=== PATIENT | female | born 2000 | race Caucasian/White ===

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

== ENCOUNTER → 2018-09-04 | Outpatient (CLI) | payer BC ==
--- NOTE | 2018-09-04 14:51 | ECHOF ---
Referral Reason:R60.9 edema R53.83 fatigue MEASUREMENTS -------- HEIGHT: 162.6 cm WEIGHT: 70.3 kg BP: IVSd: 0.9 cm (0.6 - 1.1) LVIDd: 3.0 cm (3.9 - 5.3) LVPWd: 0.9 cm (0.6 - 1.1) IVSs: 1.1 cm LVIDs: 2.3 cm LVPWs: 1.4 cm RVIDd: 2.1 cm (< 3.3) LAESV Index (A-L): 21.14 ml/m Ao Diam: 2.4 cm (2.0 - 3.7) LA Diam: 2.6 cm (2.7 - 3.8) AV Cusp: 2.0 cm (1.5 - 2.6) EPSS: 0.3 cm MV E Leonardo: 1.22 m/s MV DecT: 115 ms MV A Leonardo: 0.58 m/s MV E/A Ratio: 2.10 RAP: 5.00 mmHg RVSP: 12.98 mmHg MV EF SLOPE: 118.36 mm/s (70 - 150) MV EXCURSION: 1.26 cm (> 18.000) FINDINGS -------- Resting tachycardia (HR>100bpm). This was a technically good study. The left ventricular size is normal. Left ventricular wall thickness is normal. Overall left vent ricular systolic function is normal with, an EF between 60 - 65 %. The right ventricle is normal in size. The left atrial size is normal. The right atrial size is normal. Interatrial and interventricular septum intact. The aortic valve is trileaflet and appears structurally normal. The mitral valve is normal. There is trace mitral regurgitation. The tricuspid valve appears structurally normal. Trace tricuspid regurgitation present. The right ventricular systolic pressure, as measured by Doppler, is 12.98mmHg. There is no pulmonic regurgitation present. The aortic root size is normal. Normal inferior vena cava with normal inspiratory collapse consistent with estimated right atrial pre ssure of 5 mmHg. There is no pericardial effusion. CONCLUSIONS -------- 1. Resting tachycardia (HR>100bpm). 2. This was a technically good study. 3. The left ventricular size is normal. 4. Left ventricular wall thickness is normal. 5. Overall left ventricular systolic function is normal with, an EF between 60 - 65 %. 6. The right ventricle is normal in size. 7. The left atrial size is normal. 8. The right atrial size is normal. 9. Interatrial and interventricular septum intact. 10. The aortic valve is trileaflet and appears structurally normal. 11. The mitral valve is normal. 12. There is trace mitral regurgitation. 13. The tricuspid valve appears structurally normal. 14. Trace tricuspid regurgitation present. 15. The right ventricular systolic pressure, as measured by Doppler, is 12.98mmHg. 16. There is no pulmonic regurgitation present. 17. The aortic root size is normal. 18. Normal inferior vena cava with normal inspiratory collapse consistent with estimated right atrial pressure of 5 mmHg. 19. There is no pericardial effusion. SENIOR ARCHITECTURAL DESIGNER: Sravanthi Boateng RDCS
== END | disposition home or self-care (01) ==
LOC: RADECHMAIN 11:38
PROVIDERS: ATTEND Family Medicine
DX: R00.0 Tachycardia, unspecified (principal)
CPT/HCPCS: 93225; 93226; 93306

== ENCOUNTER 2018-09-10 11:03 | Emergency (ER) | payer BC ==
[2018-09-10] MEDS ORDERED: IBUPROFEN IV 600 MG in SODIUM CHLORIDE 0.9% 250 ML IV STA (11:23)
[2018-09-10] MEDS ORDERED: ONDANSETRON 4 MG/2 ML VIAL IVP STA (11:25)
[2018-09-10] MEDS ORDERED: MORPHINE SULFATE 2 MG/ML SYRINGE IVP ONE (11:25)
[2018-09-10] MEDS ORDERED: SODIUM CHLORIDE 0.9% 1,000 ML IV SCH (11:30)
--- NOTE | 2018-09-10 11:30 | ED ---
Abdominal Pain HPI - General Chief Complaint: Abdominal Pain Stated Complaint: abdominal pain Time Seen by Provider: 09/10/18 11:08 Source: family, RN notes reviewed, old records reviewed Mode of arrival: ambulatory Limitations: no limitations - History of Present Illness Initial Comments: 17-year-old female presents emergency department today for evaluation with complaints of 3 weeks of intermittent right lower quadrant pain. She reports she went to see her primary care doctor for physical. That time they were more concerned with patient's tachycardia, and she's had a complete workup including Holter monitoring recent echo. They don't have results of that yet. Patient's reports that over the past 48 hours she's had significant diarrhea multiple episodes of vomiting. Patient states that she has no upper respiratory symptoms or chest pain or shortness of breath. Patient states that she is currently on her menstrual cycle. - Related Data Home Medications Medication Instructions Recorded Confirmed Ibuprofen [Advil] 600 mg PO Q8HR PRN 09/10/18 09/10/18 Previous Rx's Medication Instructions Recorded Ondansetron Odt [Zofran Odt] 4 mg PO Q8HR PRN #20 tab 09/10/18 Allergies Allergy/AdvReac Type Severity Reaction Status Date / Time cephalexin [From Keflex] Allergy Rash/Hives Verified 09/10/18 11:08 Pertussis Vaccines Allergy Swelling Verified 09/10/18 11:08 Review of Systems ROS Statement: Those systems with pertinent positive or pertinent negative responses have been documented in the HPI. ROS Other: All systems not noted in ROS Statement are negative. Past Medical History Past Medical History: No Reported History History of Any Multi-Drug Resistant Organisms: None Reported Past Surgical History: Adenoidectomy, Tonsillectomy Past Psychological History: No Psychological Hx Reported Smoking Status: Never smoker Past Alcohol Use History: None Reported Past Drug Use History: None Reported General Exam - General Exam Comments Initial Comments: 17 year old female, mild discomfort, palor noted. Limitations: no limitations Head exam: Present: atraumatic, normocephalic, normal inspection Eye exam: Present: normal appearance, PERRL, EOMI. Absent: scleral icterus, conjunctival injection, periorbital swelling ENT exam: Present: normal exam Neck exam: Present: normal inspection. Absent: tenderness, meningismus, lymphadenopathy Respiratory exam: Present: normal lung sounds bilaterally. Absent: respiratory distress, wheezes, rales, rhonchi, stridor Cardiovascular Exam: Present: regular rate, normal rhythm, normal heart sounds. Absent: systolic murmur, diastolic murmur, rubs, gallop, clicks GI/Abdominal exam: Present: soft, tenderness (RLQ tendernessss. ), normal bowel sounds. Absent: distended, guarding, rebound, rigid Extremities exam: Present: normal inspection, full ROM, normal capillary refill. Absent: tenderness, pedal edema, joint swelling, calf tenderness Back exam: Present: normal inspection Neurological exam: Present: alert, oriented X3, CN II-XII intact Psychiatric exam: Present: normal affect, normal mood Skin exam: Present: warm, dry, intact, normal color. Absent: rash Course Vital Signs 09/10/18 09/10/18 09/10/18 11:04 11:25 13:47 Temperature 97.9 F 100.0 F H 98.2 F Pulse Rate 144 H 110 H Respiratory 18 16 Rate Blood Pressure 108/65 113/73 Blood Pressure [Right Arm Sitting] Blood Pressure [Right Arm Standing] Blood Pressure [Right Arm Supine] O2 Sat by Pulse 100 98 Oximetry 09/10/18 09/10/18 09/10/18 14:38 15:21 16:34 Temperature 97.6 F Pulse Rate 87 85 Respiratory 19 19 Rate Blood Pressure 107/60 110/70 Blood Pressure 108/65 [Right Arm Sitting] Blood Pressure 99/56 [Right Arm Standing] Blood Pressure 91/58 [Right Arm Supine] O2 Sat by Pulse 97 99 Oximetry - Reevaluation(s) Reevaluation #1: 09/10/18 12:14 Ambulating to the bathroom, Patient had a syncopal episode. Was lowered to the ground gently, no head injury. Stat EKG and Patient is placed on water systems engineer. Patient appeared diaphoretic and pale. Medical Decision Making - Medical Decision Making 17 year old female presents with 3 weeks intermittent RLQ pain, a few days of diarrhea and vomiting. She arrived tachycardic and febrile. Blood work obtained and normal. She works in medical field. Patient unable to have bM for cdiff sample. will take home. While in ED patient had syncopal episode likely from dehydration. Given 3L bolus. Patient vitals normalized. Patient CT abdomen is negative for appendicitis. Discussed patient to have prompt follow up with PCP and given note for work. Discussed liekly recent viral gastroenteritis. Patient family and patient agree to treatment plan. - Lab Data Result diagrams: 09/10/18 11:40 09/10/18 11:40 Lab Results 09/10/18 09/10/18 09/10/18 Range/Units 11:40 11:40 11:40 WBC 6.6 (4.0-11.0) k/uL RBC 5.19 (3.80-5.40) m/uL Hgb 15.0 (11.4-16.0) gm/dL Hct 46.4 H (34.0-46.0) % MCV 89.4 (80.0-100.0) fL MCH 28.9 (25.0-35.0) pg MCHC 32.3 (31.0-37.0) g/dL RDW 12.7 (11.5-15.5) % Plt Count 243 (150-450) k/uL Neutrophils % 84 % Lymphocytes % 11 % Monocytes % 4 % Eosinophils % 1 % Basophils % 0 % Neutrophils # 5.5 (1.3-7.7) k/uL Lymphocytes # 0.7 L (1.0-4.8) k/uL Monocytes # 0.3 (0-1.0) k/uL Eosinophils # 0.0 (0-0.7) k/uL Basophils # 0.0 (0-0.2) k/uL PT (9.0-12.0) sec INR (<1.2) APTT (22.0-30.0) sec Sodium 141 (137-145) mmol/L Potassium 3.7 (3.5-5.1) mmol/L Chloride 104 (98-107) mmol/L Carbon Dioxide 25 (22-30) mmol/L Anion Gap 12 mmol/L BUN 13 (7-17) mg/dL Creatinine 0.68 (0.52-1.04) mg/dL Est GFR (CKD-EPI)AfAm >90 (>60 ml/min/1.73 sqM) Est GFR (CKD-EPI)NonAf >90 (>60 ml/min/1.73 sqM) Glucose 98 (74-99) mg/dL Plasma Lactic Acid Rock 1.2 (0.7-2.0) mmol/L Calcium 9.7 (8.4-10.2) mg/dL Total Bilirubin 1.0 (0.2-1.3) mg/dL AST 23 (14-36) U/L ALT 25 (9-52) U/L Alkaline Phosphatase 53 (38-126) U/L Troponin I (0.000-0.034) ng/mL Total Protein 7.6 (6.3-8.2) g/dL Albumin 4.8 (3.5-5.0) g/dL TSH (0.465-4.680) mIU/L Urine Color Urine Appearance (Clear) Urine pH (5.0-8.0) Ur Specific Bartley (1.001-1.035) Urine Protein (Negative) Urine Glucose (UA) (Negative) Urine Ketones (Negative) Urine Blood (Negative) Urine Nitrite (Negative) Urine Bilirubin (Negative) Urine Urobilinogen (<2.0) mg/dL Ur Leukocyte Esterase (Negative) Urine RBC (0-5) /hpf Urine WBC (0-5) /hpf Ur Squamous Epith Cells (0-4) /hpf Urine Bacteria (None) /hpf Urine Mucus (None) /hpf Urine HCG, Qual (Not Detectd) 09/10/18 09/10/18 09/10/18 Range/Units 11:40 11:40 11:40 WBC (4.0-11.0) k/uL RBC (3.80-5.40) m/uL Hgb (11.4-16.0) gm/dL Hct (34.0-46.0) % MCV (80.0-100.0) fL MCH (25.0-35.0) pg MCHC (31.0-37.0) g/dL RDW (11.5-15.5) % Plt Count (150-450) k/uL Neutrophils % % Lymphocytes % % Monocytes % % Eosinophils % % Basophils % % Neutrophils # (1.3-7.7) k/uL Lymphocytes # (1.0-4.8) k/uL Monocytes # (0-1.0) k/uL Eosinophils # (0-0.7) k/uL Basophils # (0-0.2) k/uL PT 10.7 (9.0-12.0) sec INR 1.0 (<1.2) APTT 24.6 (22.0-30.0) sec Sodium (137-145) mmol/L Potassium (3.5-5.1) mmol/L Chloride (98-107) mmol/L Carbon Dioxide (22-30) mmol/L Anion Gap mmol/L BUN (7-17) mg/dL Creatinine (0.52-1.04) mg/dL Est GFR (CKD-EPI)AfAm (>60 ml/min/1.73 sqM) Est GFR (CKD-EPI)NonAf (>60 ml/min/1.73 sqM) Glucose (74-99) mg/dL Plasma Lactic Acid Rock (0.7-2.0) mmol/L Calcium (8.4-10.2) mg/dL Total Bilirubin (0.2-1.3) mg/dL AST (14-36) U/L ALT (9-52) U/L Alkaline Phosphatase (38-126) U/L Troponin I <0.012 (0.000-0.034) ng/mL Total Protein (6.3-8.2) g/dL Albumin (3.5-5.0) g/dL TSH 0.471 (0.465-4.680) mIU/L Urine Color Urine Appearance (Clear) Urine pH (5.0-8.0) Ur Specific Bartley (1.001-1.035) Urine Protein (Negative) Urine Glucose (UA) (Negative) Urine Ketones (Negative) Urine Blood (Negative) Urine Nitrite (Negative) Urine Bilirubin (Negative) Urine Urobilinogen (<2.0) mg/dL Ur Leukocyte Esterase (Negative) Urine RBC (0-5) /hpf Urine WBC (0-5) /hpf Ur Squamous Epith Cells (0-4) /hpf Urine Bacteria (None) /hpf Urine Mucus (None) /hpf Urine HCG, Qual (Not Detectd) 09/10/18 09/10/18 Range/Units 14:30 14:30 WBC (4.0-11.0) k/uL RBC (3.80-5.40) m/uL Hgb (11.4-16.0) gm/dL Hct (34.0-46.0) % MCV (80.0-100.0) fL MCH (25.0-35.0) pg MCHC (31.0-37.0) g/dL RDW (11.5-15.5) % Plt Count (150-450) k/uL Neutrophils % % Lymphocytes % % Monocytes % % Eosinophils % % Basophils % % Neutrophils # (1.3-7.7) k/uL Lymphocytes # (1.0-4.8) k/uL Monocytes # (0-1.0) k/uL Eosinophils # (0-0.7) k/uL Basophils # (0-0.2) k/uL PT (9.0-12.0) sec INR (<1.2) APTT (22.0-30.0) sec Sodium (137-145) mmol/L Potassium (3.5-5.1) mmol/L Chloride (98-107) mmol/L Carbon Dioxide (22-30) mmol/L Anion Gap mmol/L BUN (7-17) mg/dL Creatinine (0.52-1.04) mg/dL Est GFR (CKD-EPI)AfAm (>60 ml/min/1.73 sqM) Est GFR (CKD-EPI)NonAf (>60 ml/min/1.73 sqM) Glucose (74-99) mg/dL Plasma Lactic Acid Rock (0.7-2.0) mmol/L Calcium (8.4-10.2) mg/dL Total Bilirubin (0.2-1.3) mg/dL AST (14-36) U/L ALT (9-52) U/L Alkaline Phosphatase (38-126) U/L Troponin I (0.000-0.034) ng/mL Total Protein (6.3-8.2) g/dL Albumin (3.5-5.0) g/dL TSH (0.465-4.680) mIU/L Urine Color Yellow Urine Appearance Clear (Clear) Urine pH 7.0 (5.0-8.0) Ur Specific Bartley 1.050 H (1.001-1.035) Urine Protein Trace H (Negative) Urine Glucose (UA) Negative (Negative) Urine Ketones 1+ H (Negative) Urine Blood Large H (Negative) Urine Nitrite Negative (Negative) Urine Bilirubin Negative (Negative) Urine Urobilinogen <2.0 (<2.0) mg/dL Ur Leukocyte Esterase Negative (Negative) Urine RBC >182 H (0-5) /hpf Urine WBC 7 H (0-5) /hpf Ur Squamous Epith Cells 5 H (0-4) /hpf Urine Bacteria Rare H (None) /hpf Urine Mucus Rare H (None) /hpf Urine HCG, Qual Not Detected (Not Detectd) 09/10/18 12:29 EKGEKG shows normal sinus rhythm with normal EKG. Ventricular rate of 93 beats were minute period. It was 136 ms. QRS ration 76 most seconds. QT QTc is 342/425 ms. - Radiology Data Radiology results: report reviewed CT abdomen and pelvis is negative for acute process, no sign of appendiitis. Disposition Clinical Impression: Gastroenteritis, History of tachycardia Disposition: HOME SELF-CARE Condition: Good Instructions (If sedation given, give patient instructions): Gastroenteritis (ED), Lightheadedness (ED) Additional Instructions: Patient is to be off of work for the next week. Rest, remain hydrated alternate between water and Gatorade. He take nausea medicine as needed. Return the stool softener for further testing. Patient should follow-up with your primary care doctor and he can also follow up with cardiology. Prescriptions: Ondansetron Odt [Zofran Odt] 4 mg PO Q8HR PRN #20 tab PRN Reason: Nausea Is patient prescribed a controlled substance at d/c from ED?: No Referrals: Dipesh Urbano III, MD [Primary Care Provider] - 1-2 days Time of Disposition: 16:06
[2018-09-10] MEDS: SODIUM CHLORIDE 0.9% 500 ML 500 ML IV SCH ×2 (12:09→14:36)
[2018-09-10 12:12] LABS: Basophils % (A) 0 %; Eosinophils % (A) 1 %; HCT 46.4 % (34.0-46.0); Lymphocytes # (A) 0.7 k/uL (1.0-4.8); Lymphocytes % (A) 11 %; MCH 28.9 pg (25.0-35.0); MCHC 32.3 g/dL (31.0-37.0); MCV 89.4 fL (80.0-100.0); Mean Platelet Volume 7.8; Monocytes # (A) 0.3 k/uL (0-1.0); Monocytes % (A) 4 %; Neutrophils # (A) 5.5 k/uL (1.3-7.7); Neutrophils % (A) 84 %; Platelet Count 243 k/uL (150-450); RBC 5.19 m/uL (3.80-5.40); RDW 12.7 % (11.5-15.5); WBC 6.6 k/uL (4.0-11.0)
[2018-09-10 12:17] LABS: ALT 25 U/L (9-52); AST 23 U/L (14-36); Albumin 4.8 g/dL (3.5-5.0); Alkaline Phosphatase 53 U/L (38-126); Anion Gap 12 mmol/L; Blood Urea Nitrogen 13 mg/dL (7-17); Calcium 9.7 mg/dL (8.4-10.2); Carbon Dioxide 25 mmol/L (22-30); Chloride 104 mmol/L (98-107); Glucose 98 mg/dL (74-99); Potassium 3.7 mmol/L (3.5-5.1); Sodium 141 mmol/L (137-145); Total Protein 7.6 g/dL (6.3-8.2)
[2018-09-10 12:24] LABS: Partial Thromboplastin Time 24.6 sec (22.0-30.0); Prothrombin Time 10.7 sec (9.0-12.0)
--- NOTE | 2018-09-10 13:29 | CT ---
EXAMINATION TYPE: CT abdomen pelvis w con DATE OF EXAM: 09/10/2018 HISTORY: RLQ pain CT DLP: 659.4mGycm Automated Exposure Control for Dose Reduction was Utilized. CONTRAST: CT scan of the abdomen and pelvis is performed without oral but with IV Contrast, patient injected wi th 100 mL of Isovue 300. COMPARISON: None FINDINGS: LUNG BASES: No significant abnormality is appreciated. LIVER/GB: Mild central periportal edema is seen which is nonspecific finding. PANCREAS: No significant abnormality is seen. SPLEEN: There is 1.0 cm splenule anterior in splenic hilum axial image 9. ADRENALS: No significant abnormality is seen. KIDNEYS: No significant abnormality is seen. BOWEL: Evaluation bowel is suboptimal due to lack of enteric contrast and patient having little intra -abdominal fat. There is no suspicious small or large bowel dilatation. Appendix felt difficult to vi sualize with certainty. Normal-appearing appendix medially from the cecum is felt present axial image 33. No surrounding inflammatory change at base of cecum is identified. UTERUS/ADNEXA: Anteverted uterus is present. LYMPH NODES: No greater than 1cm abdominal or pelvic lymph nodes are appreciated. OSSEOUS STRUCTURES: No significant abnormality is seen. OTHER: No significant additional abnormality is seen. IMPRESSION: Suboptimal study without CT evidence for acute appendicitis. No significant acute finding is seen to account for patient's clinical symptoms.
[2018-09-10] MEDS ORDERED: SODIUM CHLORIDE 0.9% 2,000 ML IV ONE (14:10)
[2018-09-10 14:38] VITALS: RESP 19
[2018-09-10 14:55] LABS: Appearance,Urine Clear (Clear); Bacteria,Urine Rare /hpf; Bilirubin,Urine Negative (Negative); Blood,Urine Large (Negative); Color,Urine Yellow; Glucose,Urine (UA) Negative (Negative); Ketones,Urine 1+ (Negative); Leukocyte Esterase,Urine Negative (Negative); Mucus,Urine Rare /hpf; Nitrite,Urine Negative (Negative); Protein,Urine Trace (Negative); RBC,Urine >182 /hpf (0-5); Squamous Epithelial Cell,Urine 5 /hpf (0-4); Urobilinogen,Urine <2.0 mg/dL (<2.0); WBC,Urine 7 /hpf (0-5)
[2018-09-10 16:35] VITALS: BP 110/70; PULSE 85; TEMP 97.6
== END 2018-09-10 16:35 | disposition home or self-care (01) ==
LOC: EC 11:03
DX: K52.9 Noninfective gastroenteritis and colitis, unspecified (principal); Z88.1 Allergy status to other antibiotic agents; Z88.7 Allergy status to serum and vaccine
CPT/HCPCS: 99285; 96365; 96375 ×2; 96361 ×4; 36415; 93005; 80053; 84443; 83605; 84484; 85025; 85610; 85730; 81001; 81025; 87040; 87086; 87077; 87186; 74177; J2405; J2270; J1741; Q9967

== ENCOUNTER 2018-11-20 07:22 | Day surgery (SDC) | payer BC ==
[2018-11-16 12:56] VITALS: BMI 26.6
[~2018-11-20 07:22] MED LIST: SODIUM CHLORIDE 0.9% 1,000 ML IV SCH
[2018-11-20 08:09] VITALS: PULSE 103
[2018-11-20 10:33] VITALS: BP 127/70; RESP 18
--- NOTE | 2018-11-20 10:48 | P.PCN ---
Preoperative Diagnosis: Diagnosis recurrent syncope and presyncope Twelve-lead ECG shows sinus rhythm with early repolarization abnormality normal cardiac intervals, normal PA narrow QRS normal QT interval no delta waves no epsilon waves Tilt table test per protocol Baseline blood pressure 104/69 mmHg Baseline heart rate 82 beats a minute Patient was tilted upright at an angle of 70 per protocol After 20 minutes patient had sinus tachycardia 211 beats a minute following that there was a drop in her blood pressure, abrupt. She was symptomatic. She felt warm and very weak and looked pale and was near syncopal Symptoms were very similar to her clinical episodes When she was laid supine, heart rate and blood pressure normalized Lowest heart rate of 40 beats a minute Impression Normal twelve-lead ECG Vasovagal/neurocardiogenic response to upright tilting Increase fluid and salt intake Lower extremity muscle strengthening exercises Regular normal diet Discussed with patient's mother and the patient
== END 2018-11-20 10:30 | disposition home or self-care (01) ==
LOC: CATHEP 07:22
PROVIDERS: ATTEND Internal Medicine Clinical Cardiac Electrophysiology
DX: R55 Syncope and collapse (principal); I47.1 Supraventricular tachycardia; Z88.1 Allergy status to other antibiotic agents; Z86.19 Personal history of other infectious and parasitic diseases; Z82.49 Family history of ischemic heart disease and other diseases of the circulatory system
CPT/HCPCS: 81025; 93660

== ENCOUNTER → 2021-05-26 | Outpatient (CLI) | payer BC ==
[2021-05-26 10:52] LABS: Basophils # (A) 0.03 X 10*3/uL (0.00-0.10); Basophils % (A) 0.2 %; Eosinophils # (A) 0.02 X 10*3/uL (0.04-0.35); Eosinophils % (A) 0.2 %; HCT 39.8 % (37.2-46.3); HGB 12.5 g/dL (12.0-15.0); Lymphocytes # (A) 2.45 X 10*3/uL (0.90-5.00); Lymphocytes % (A) 19.1 %; MCH 28.4 pg (27.0-32.0); MCHC 31.4 g/dL (32.0-37.0); MCV 90.5 fL (80.0-97.0); Mean Platelet Volume 10.6 fL (9.5-12.2); Monocytes # (A) 1.08 X 10*3/uL (0.20-1.00); Monocytes % (A) 8.4 %; Neutrophils # (A) 9.17 X 10*3/uL (1.80-7.70); Neutrophils % (A) 71.7 %; Platelet Count 313 X 10*3/uL (140-440)
[2021-05-26 16:51] LABS: ALT 12 U/L (8-44); AST 20 U/L (13-35); African American GFR (CKD) 142.5 (60.0-200.0); Albumin 4.7 g/dL (3.8-4.9); Albumin/Globulin Ratio 1.62 (1.60-3.17); Alkaline Phosphatase 62 U/L (41-126); BUN/Creat Ratio 17.57 Ratio (12.00-20.00); Blood Urea Nitrogen 12.3 mg/dL (9.0-27.0); Calcium 9.5 mg/dL (8.7-10.3); Chloride 103 mmol/L (96-109); Ferritin 82.8 ng/mL (10.0-291.0); Globulin 2.9 g/dL (1.6-3.3); Glucose 74 mg/dL (70-110); Potassium 3.4 mmol/L (3.5-5.5); Sodium 141 mmol/L (135-145); Total Protein 7.6 g/dL (6.2-8.2)
[2021-05-27 05:30] LABS: % Iron Saturation 27.54 (12.00-45.00); Iron 101 ug/dL (50-170); Total Iron Binding Capacity 367 ug/dL (228-460)
== END | disposition home or self-care (01) ==
LOC: LABWHC1 07:24
PROVIDERS: ATTEND Physician Assistant Medical
DX: Z00.01 Encounter for general adult medical examination with abnormal findings (principal); I47.9 Paroxysmal tachycardia, unspecified; R53.83 Other fatigue; Z11.3 Encounter for screening for infections with a predominantly sexual mode of transmission
CPT/HCPCS: 36415; 80053; 82306; 82533; 82607; 82728; 83540; 83550; 84443; 85025

== ENCOUNTER 2023-04-07 20:10 | Emergency (ER) | payer BC ==
[2023-04-07 22:11] VITALS: BP 144/101; PULSE 120; RESP 18; TEMP 98.8
--- NOTE | 2023-04-07 22:58 | ED ---
Skin/Abscess/FB HPI - General Chief complaint: Skin/Abscess/Foreign Body Stated complaint: left foot swollen/pain Time Seen by Provider: 04/07/23 21:55 Source: patient Mode of arrival: ambulatory Limitations: no limitations - History of Present Illness Initial comments: This patient is 22-year-old woman who presents to have evaluation for which she suspects is infection of her foot. She indicates the interdigital area between first and second toes on the left foot. She states that it is becoming red. She has had a wart at that location going back some months and thinks that it has become infected. She is not having systemic symptoms. No fever or chills. No palpitations, chest pain, dyspnea or cough. MD complaint: discoloration -: days(s) Tetanus Up to Date: yes Location: L foot Severity: moderate Quality: burning Consistency: constant Improves with: none Worsens with: none Context: none Associated symptoms: denies other symptoms - Related Data Home Medications Medication Instructions Recorded Confirmed Ibuprofen [Advil] 600 mg PO Q8HR PRN 09/10/18 11/16/18 Acetaminophen Tab [Tylenol Tab] 650 mg PO Q6H PRN 11/16/18 11/16/18 Previous Rx's Medication Instructions Recorded Sulfamethox-Tmp 800-160Mg [Bactrim 1 each PO Q12HR #14 tab 04/07/23 Ds] Amoxicillin 875 mg PO Q12HR 5 Days #10 tablet 04/10/23 Doxycycline Hyclate 100 mg PO BID 5 Days #10 tab 04/10/23 Ibuprofen [Motrin] 800 mg PO Q8H PRN #30 tab 04/10/23 Allergies Allergy/AdvReac Type Severity Reaction Status Date / Time cephalexin [From Keflex] Allergy Rash/Hives Verified 04/10/23 18:21 Pertussis Vaccines Allergy Swelling Verified 04/10/23 18:21 Review of Systems ROS Statement: Those systems with pertinent positive or pertinent negative responses have been documented in the HPI. ROS Other: All systems not noted in ROS Statement are negative. Constitutional: Denies: fever, chills, weakness Respiratory: Denies: dyspnea Cardiovascular: Denies: chest pain, palpitations Gastrointestinal: Denies: vomiting Skin: Reports: as per HPI, change in color Neurological: Denies: weakness, numbness, paresthesias Past Medical History Past Medical History: No Reported History Additional Past Medical History / Comment(s): HIGH HR, 120'S TO 130'S, TOLD SINUS TACH IN PAST; PASSED OUT OCC WHEN ILL. History of Any Multi-Drug Resistant Organisms: None Reported Past Surgical History: Adenoidectomy, Tonsillectomy Past Anesthesia/Blood Transfusion Reactions: No Reported Reaction Past Psychological History: No Psychological Hx Reported Smoking Status: Never smoker Past Alcohol Use History: None Reported Past Drug Use History: None Reported - Past Family History Mother Family Medical History: Cancer Additional Family Medical History / Comment(s): COLON [place] General Exam Limitations: no limitations General appearance: alert, in no apparent distress Respiratory exam: Present: normal lung sounds bilaterally. Absent: respiratory distress, wheezes, rales, rhonchi, stridor Cardiovascular Exam: Present: regular rate, normal rhythm, normal heart sounds. Absent: systolic murmur, diastolic murmur, rubs, gallop Left Lower Leg exam: Present: normal inspection, full ROM. Absent: tenderness, swelling Ankle exam: Present: normal inspection, full ROM. Absent: tenderness, swelling Foot/Toe exam: Present: full ROM, swelling, erythema. Absent: tenderness, abrasion, laceration, ecchymosis, deformity, puncture wound Neurovascular tendon exam: Present: no vascular compromise. Absent: motor deficit, sensory deficit, tendon deficit Skin exam: Present: warm, dry, intact, erythema. Absent: rash Course Vital Signs 04/07/23 21:47 Temperature 98.8 F Pulse Rate 120 H Respiratory 18 Rate Blood Pressure 144/101 O2 Sat by Pulse 98 Oximetry Medical Decision Making - Medical Decision Making Patient is 22-year-old woman who presents with what appears to be developing foot infection. She is started on antibiotics here and will have close follow- up, either returning here if no improvement or worsening, or following with the orthopedics if there is not total resolution. Was pt. sent in by a medical professional or institution (, PA, RUFFLER, urgent care, hospital, or shelter...) When possible be specific @ -[No] Did you speak to anyone other than the patient for history (EMS, parent, family, police, friend...)? What history was obtained from this source @ -[Family did contribute history Did you review nursing and triage notes (agree or disagree)? Why? @ -[I reviewed and agree with nursing and triage notes] Were old charts reviewed (outside hosp., previous admission, EMS record, old EKG, old radiological studies, urgent care reports/EKG's, shelter records)? Report findings @ -[No old charts were reviewed] Differential Diagnosis (chest pain, altered mental status, abdominal pain women, abdominal pain men, vaginal bleeding, weakness, fever, dyspnea, syncope, headache, dizziness, GI bleed, back pain, seizure, CVA, palpatations, mental health, musculoskeletal)? @ -[not applicable] EKG interpreted by me (3pts min.). @ -[ X-rays interpreted by me (1pt min.). @ -[None done] CT interpreted by me (1pt min.). @ -[None done] U/S interpreted by me (1pt. min.). @ -[None done] What testing was considered but not performed or refused? (CT, X-rays, U/S, labs)? Why? @ -[None] What meds were considered but not given or refused? Why? @ -[None] Did you discuss the management of the patient with other professionals (professionals i.e. , PA, RUFFLER, lab, RT, psych nurse, social worker aide, drum straightener, teacher, youth officer, disability case manager)? Give summary @ -[No] Was smoking cessation discussed for >3mins.? @ -[No] Was critical care preformed (if so, how long)? @ -[No] Were there social determinants of health that impacted care today? How? (Homelessness, low income, unemployed, alcoholism, drug addiction, transportation, low edu. Level, literacy, decrease access to med. care, long-term, rehab)? @ -[No] Was there de-escalation of care discussed even if they declined (Discuss DNR or withdrawal of care, Hospice)? DNR status @ -[No] What co-morbidities impacted this encounter? (DM, HTN, Smoking, COPD, CAD, Cancer, CVA, ARF, Chemo, Hep., AIDS, mental health diagnosis, sleep apnea, morbid obesity)? @ -[None] Was patient admitted / discharged? Hospital course, mention meds given and route, prescriptions, significant lab abnormalities, going to OR and other pertinent info. @ -[See above Undiagnosed new problem with uncertain prognosis? @ -[No] Drug Therapy requiring intensive monitoring for toxicity (Heparin, Nitro, Insulin, Cardizem)? @ -[No] Were any procedures done? @ -[No] Diagnosis/symptom? @ -Acute cellulitis left foot Acute, or Chronic, or Acute on Chronic? @ -[Acute Uncomplicated (without systemic symptoms) or Complicated (systemic symptoms)? @ -[Uncomplicated Side effects of treatment? @ -[No] Exacerbation, Progression, or Severe Exacerbation? @ -[No] Poses a threat to life or bodily function? How? (Chest pain, [place], [place], pneumonia, PE, COPD, DKA, ARF, appy, cholecystitis, CVA, Diverticulitis, Homicidal, Suicidal, threat to staff... and all critical care pts) @ -[No] Disposition Clinical Impression: Cellulitis Disposition: HOME SELF-CARE Condition: Good Instructions (If sedation given, give patient instructions): Cellulitis (ED) Prescriptions: Sulfamethox-Tmp 800-160Mg [Bactrim Ds] 1 each PO Q12HR #14 tab Is patient prescribed a controlled substance at d/c from ED?: No Referrals: None,Stated [Primary Care Provider] - 1-2 days
[2023-04-07] MEDS ORDERED: traMADol 50 MG STARTER PACK 3 TAB BTL PO STA (22:59)
[2023-04-07] MEDS ORDERED: SULFAMETH-TMP DS STARTER PACK 2 TAB BTL PO STA (22:59)
== END 2023-04-07 23:19 | disposition home or self-care (01) ==
LOC: EC 20:10
DX: L03.116 Cellulitis of left lower limb (principal); Z88.0 Allergy status to penicillin; Z88.2 Allergy status to sulfonamides; Z88.8 Allergy status to other drugs, medicaments and biological substances; Z88.7 Allergy status to serum and vaccine
CPT/HCPCS: 99283

== ENCOUNTER 2023-04-10 18:15 | Emergency (ER) | payer BC ==
--- NOTE | 2023-04-10 18:50 | ED ---
Extremity Problem HPI - General Source: patient, RN notes reviewed Mode of arrival: ambulatory Limitations: no limitations <Emily West - Last Filed: 04/10/23 18:49> - General Source: patient, RN notes reviewed Mode of arrival: ambulatory Limitations: no limitations - History of Present Illness MD Complaint: extremity pain, extremity swelling <Argenis Galicia - Last Filed: 04/11/23 01:35> - General Chief complaint: Extremity Problem,Nontraumatic Stated complaint: LEFT FOOT INFECTION Time Seen by Provider: 04/10/23 18:49 - History of Present Illness Initial comments: Patient is a [age]-year-old female presented ER chief complaint of a left foot infection patient is currently on Bactrim. Patient states her symptoms are getting worse. Patient denies any fevers or chills. (Emily West) This is a 22-year-old female who presents to the emergency department for concerns of a left foot infection. States that she has a wart between her first and second toe on the left foot. She saw her balloon seller for this 5 days ago. They froze the wart, and then applied a topical treatment. She then became concerned that it was becoming increasingly swollen and red, prompting her to come to the emergency department 3 days ago. She was started on Bactrim. However, states that the swelling seems to be getting worse and she is concerned that the redness is starting to spread. This is causing pain with ambulation. Denies any fevers or chills. She has not had any drainage coming from the wound. She does not have a follow-up scheduled with dermatology. (Argenis Galicia) - Related Data Home Medications Medication Instructions Recorded Confirmed Ibuprofen [Advil] 600 mg PO Q8HR PRN 09/10/18 11/16/18 Acetaminophen Tab [Tylenol Tab] 650 mg PO Q6H PRN 11/16/18 11/16/18 Previous Rx's Medication Instructions Recorded Sulfamethox-Tmp 800-160Mg [Bactrim 1 each PO Q12HR #14 tab 04/07/23 Ds] Amoxicillin 875 mg PO Q12HR 5 Days #10 tablet 04/10/23 Doxycycline Hyclate 100 mg PO BID 5 Days #10 tab 04/10/23 Ibuprofen [Motrin] 800 mg PO Q8H PRN #30 tab 04/10/23 Allergies Allergy/AdvReac Type Severity Reaction Status Date / Time cephalexin [From Keflex] Allergy Rash/Hives Verified 04/10/23 18:21 Pertussis Vaccines Allergy Swelling Verified 04/10/23 18:21 Review of Systems ROS Other: All systems not noted in ROS Statement are negative. <Emily West - Last Filed: 04/10/23 18:49> ROS Other: All systems not noted in ROS Statement are negative. <Argenis Galicia - Last Filed: 04/11/23 01:35> ROS Statement: Those systems with pertinent positive or pertinent negative responses have been documented in the HPI. Past Medical History Past Medical History: No Reported History Additional Past Medical History / Comment(s): HIGH HR, 120'S TO 130'S, TOLD SINUS TACH IN PAST; PASSED OUT OCC WHEN ILL. History of Any Multi-Drug Resistant Organisms: None Reported Past Surgical History: Adenoidectomy, Tonsillectomy Past Anesthesia/Blood Transfusion Reactions: No Reported Reaction Past Psychological History: No Psychological Hx Reported Smoking Status: Never smoker Past Alcohol Use History: None Reported Past Drug Use History: None Reported - Past Family History Mother Family Medical History: Cancer Additional Family Medical History / Comment(s): COLON CA <Emily West - Last Filed: 04/10/23 18:49> General Exam Limitations: no limitations <Emily West - Last Filed: 04/10/23 18:49> Limitations: no limitations General appearance: alert, in no apparent distress Head exam: Present: atraumatic, normocephalic, normal inspection Respiratory exam: Present: normal lung sounds bilaterally. Absent: respiratory distress, wheezes, rales, rhonchi, stridor Cardiovascular Exam: Present: regular rate, normal rhythm, normal heart sounds. Absent: systolic murmur, diastolic murmur, rubs, gallop, clicks Extremities exam: Present: other (There is a wart between the first and second toe on the left foot with black crusting and approximately 3 cm of erythema extending from the wart on the top of the foot. Overlying tenderness. No drainage.) Neurological exam: Present: alert, oriented X3, CN II-XII intact Psychiatric exam: Present: normal affect, normal mood <Argenis Galicia - Last Filed: 04/11/23 01:35> - General Exam Comments Initial Comments: Visual Physical Exam Vital signs reviewed General: Well-appearing, nontoxic, no acute distress. Head: Normocephalic, atraumatic Eyes: PERRLA, EOMI ENT: Airway patent Chest: Nonlabored breathing Skin: No visual rash, normal skin tone Neuro: Alert and oriented 3 Musculoskeletal: No gross abnormalities (Emily West) Course Vital Signs 04/10/23 04/10/23 18:17 22:52 Temperature 98.4 F 99.1 F Pulse Rate 119 H 106 H Respiratory 18 20 Rate Blood Pressure 125/88 120/81 O2 Sat by Pulse 98 98 Oximetry Medical Decision Making <Emily West - Last Filed: 04/10/23 18:49> - Lab Data Result diagrams: 04/10/23 19:42 04/10/23 19:42 - Radiology Data Radiology results: report reviewed, image reviewed <Argenis Galicia - Last Filed: 04/11/23 01:35> - Medical Decision Making I performed the quick note portion of the exam. Electronically signed by Emily West PA-C (Emily West) This is a 22-year-old female who presents to the emergency department for a left foot infection. Was pt. sent in by a medical professional or institution? @ -No Did you speak to anyone other than the patient for history? @ -No Did you review nursing and triage notes? @ -Yes, and I agree, it is accurate with regards to the patient's symptoms. Were old charts reviewed? @ -No Differential Diagnosis? @ -Differential Foot Infection: Cellulitis, wart, abscess, abrasion, this is not meant to be an all-inclusive list. EKG interpreted by me (3pts min.)? @ -Not obtained X-rays interpreted by me (1pt min.)? @ -X-ray of the left foot obtained. My interpretation identifies no soft tissue swelling. CT interpreted by me (1pt min.)? @ -Not obtained U/S interpreted by me (1pt. min.)? @ -Not obtained What testing was considered but not performed? (CT, X-rays, U/S, labs)? Why? @ -None What meds were considered but not given? Why? @ -None Did you discuss the management of the patient with other professionals? @ -No Did you reconcile home meds? @ -No Was smoking cessation discussed for >3mins.? @ -No Was critical care preformed (if so, how long)? @ -No Were there social determinants of health that impacted care today? How? (Homelessness, low income, unemployed, alcoholism, drug addiction, transportation, low edu. Level, literacy, decrease access to med. care, skilled nursing, rehab)? @ -No Was there de-escalation of care discussed even if they declined? (Discuss DNR or withdrawal of care, Hospice)? @ -No What co-morbidities impacted this encounter? (DM, HTN, Smoking, COPD, CAD, Cancer, CVA, Hep., AIDS, mental health diagnosis, sleep apnea, morbid obesity)? @ -None Was patient admitted / discharged? @ -Discharged. Lab work obtained and found to be unremarkable. X-ray of the left foot obtained revealing no acute process. Physical examination reveals a notable amount of crusting with a very small amount of erythema extending from the wart. Discussed with the patient the option of discontinuing the Bactrim an d beginning something else versus continuing the Bactrim. While the patient has a potential allergy to cephalosporins, states that she can tolerate penicillins. Prescription for amoxicillin and doxycycline provided with dosing instructions reviewed. Initial dose administered in the emergency department. She was also given a prescription ibuprofen for symptomatic management. I did also provide the patient with a postoperative shoe and we bandaged the foot to help with pressure on this area. Also discussed [id number] donut bandages to also help take pressure off of the wart. Patient discharged home in stable condition and advised to follow-up with dermatology. Undiagnosed new problem with uncertain prognosis? @ -None Drug Therapy requiring intensive monitoring for toxicity (Heparin, Nitro, Insulin, Cardizem)? @ -None Were any procedures done? @ -None Diagnosis/symptom? @ -Plantar wart, cellulitis Acute, or Chronic, or Acute on Chronic? @ -Acute Uncomplicated (without systemic symptoms) or Complicated (systemic symptoms)? @ -Uncomplicated Side effects of treatment? @ -None Exacerbation, Progression, or Severe Exacerbation] @ -Not applicable Poses a threat to life or bodily function? @ -No Return precautions reviewed in depth, the patient is instructed to return to the emergency department with any new, worsening, or concerning symptoms. Patient verbalized understanding. This case was discussed in detail with the attending ED physician, Dr. Davison. Presentation, findings, and treatment plan discussed in detail as well. (Argenis Galicia) - Lab Data Lab Results 04/10/23 04/10/23 04/10/23 Range/Units 19:42 19:42 19:42 WBC 9.7 (3.8-10.6) k/uL RBC 5.17 (3.80-5.40) m/uL Hgb 15.5 (11.4-16.0) gm/dL Hct 47.8 H (34.0-46.0) % MCV 92.4 (80.0-100.0) fL MCH 29.9 (25.0-35.0) pg MCHC 32.4 (31.0-37.0) g/dL RDW 12.9 (11.5-15.5) % Plt Count 277 (150-450) k/uL MPV 8.2 Neutrophils % 72 % Lymphocytes % 21 % Monocytes % 4 % Eosinophils % 1 % Basophils % 0 % Neutrophils # 6.9 (1.3-7.7) k/uL Lymphocytes # 2.0 (1.0-4.8) k/uL Monocytes # 0.4 (0-1.0) k/uL Eosinophils # 0.1 (0-0.7) k/uL Basophils # 0.0 (0-0.2) k/uL Sodium 138 (137-145) mmol/L Potassium 4.7 (3.5-5.1) mmol/L Chloride 103 (98-107) mmol/L Carbon Dioxide 21 L (22-30) mmol/L Anion Gap 14 mmol/L BUN 15 (7-17) mg/dL Creatinine 0.83 (0.52-1.04) mg/dL Est GFR (CKD-EPI)AfAm >90 (>60 ml/min/1.73 sqM) Est GFR (CKD-EPI)NonAf >90 (>60 ml/min/1.73 sqM) Glucose 102 H (74-99) mg/dL Plasma Lactic Acid Rock 1.4 (0.7-2.0) mmol/L Calcium 9.9 (8.4-10.2) mg/dL Total Bilirubin 0.3 (0.2-1.3) mg/dL AST 23 (14-36) U/L ALT 16 (4-34) U/L Alkaline Phosphatase 69 (38-126) U/L C-Reactive Protein <0.5 (<1.0) mg/dL Total Protein 8.3 H (6.3-8.2) g/dL Albumin 5.0 (3.5-5.0) g/dL Disposition <Emily West - Last Filed: 04/10/23 18:49> Is patient prescribed a controlled substance at d/c from ED?: No <Argenis Galicia - Last Filed: 04/11/23 01:35> Clinical Impression: Plantar wart, left foot, Cellulitis Disposition: HOME SELF-CARE Instructions (If sedation given, give patient instructions): Plantar Wart (ED) Additional Instructions: Return to the emergency department with any new, worsening, or concerning symp toms. Stop taking the Bactrim and begin taking the Doxycycline and Amoxicillin as prescribed for 5 days. Try to bandage the area or apply a donut-shaped bandage or patch to take pressure off of the area. Follow up with your balloon seller. Prescriptions: Amoxicillin 875 mg PO Q12HR 5 Days #10 tablet Doxycycline Hyclate 100 mg PO BID 5 Days #10 tab Ibuprofen [Motrin] 800 mg PO Q8H PRN #30 tab PRN Reason: Pain Referrals: None,Stated [Primary Care Provider] - 1-2 days
[2023-04-10] MEDS ORDERED: traMADol 50 MG TAB PO STA (19:40)
[2023-04-10] MEDS ORDERED: IBUPROFEN 800 MG TAB PO STA (19:40)
[2023-04-10 19:52] LABS: Basophils % (A) 0 %; Eosinophils # (A) 0.1 k/uL (0-0.7); Eosinophils % (A) 1 %; HCT 47.8 % (34.0-46.0); HGB 15.5 gm/dL (11.4-16.0); Lymphocytes % (A) 21 %; MCH 29.9 pg (25.0-35.0); MCHC 32.4 g/dL (31.0-37.0); MCV 92.4 fL (80.0-100.0); Mean Platelet Volume 8.2; Monocytes # (A) 0.4 k/uL (0-1.0); Monocytes % (A) 4 %; Neutrophils # (A) 6.9 k/uL (1.3-7.7); Neutrophils % (A) 72 %; Platelet Count 277 k/uL (150-450); RBC 5.17 m/uL (3.80-5.40); RDW 12.9 % (11.5-15.5); WBC 9.7 k/uL (3.8-10.6)
[2023-04-10 20:03] LABS: ALT 16 U/L (4-34); AST 23 U/L (14-36); African American GFR (CKD) >90 (>60 ml/min/1.73 sqM); Alkaline Phosphatase 69 U/L (38-126); Anion Gap 14 mmol/L; Blood Urea Nitrogen 15 mg/dL (7-17); C Reactive Protein <0.5 mg/dL (<1.0); Calcium 9.9 mg/dL (8.4-10.2); Carbon Dioxide 21 mmol/L (22-30); Chloride 103 mmol/L (98-107); Glucose 102 mg/dL (74-99); Non-African American GFR(CKD) >90 (>60 ml/min/1.73 sqM); Potassium 4.7 mmol/L (3.5-5.1); Sodium 138 mmol/L (137-145); Total Bilirubin 0.3 mg/dL (0.2-1.3); Total Protein 8.3 g/dL (6.3-8.2)
--- NOTE | 2023-04-10 20:11 | XR ---
EXAMINATION TYPE: XR foot complete LT DATE OF EXAM: 04/10/2023 7:46 PM CLINICAL INDICATION:Female, 22 years old with history of pain; COMPARISON: None TECHNIQUE: XR foot complete LT examined in the AP, oblique, and lateral projections. FINDINGS: No evidence of any acute osseous pathology. No evidence of soft tissue swelling. Joints are preserve d. IMPRESSION: No evidence of acute fracture.
[2023-04-10] MEDS ORDERED: IBUPROFEN 600 MG STARTER PACK 4 TAB BTL PO STA (21:00)
[2023-04-10] MEDS ORDERED: traMADol 50 MG STARTER PACK 3 TAB BTL PO STA (21:00)
[2023-04-10] MEDS ORDERED: DOXYCYCLINE 100 MG CAP PO STA (21:11)
[2023-04-10] MEDS ORDERED: AMPICILLIN-SULBACTAM 1.5 GM in SODIUM CHLORIDE 0.9% 50 ML IVPB ONE (21:30)
[2023-04-10 23:10] VITALS: BP 120/81; PULSE 106; RESP 20; TEMP 99.1
[2023-04-11 05:14] LABS: Erythrocyte Sedimentation Rate 27 mm/Hr (0-20)
== END 2023-04-10 22:57 | disposition home or self-care (01) ==
LOC: EC 18:15
DX: B07.0 Plantar wart (principal); L03.116 Cellulitis of left lower limb; Z88.1 Allergy status to other antibiotic agents; Z88.7 Allergy status to serum and vaccine
CPT/HCPCS: 36415; 80053; 85652; 83605; 85025; 86140; 73630; 99283; 96365; J0295

== ENCOUNTER → 2023-05-16 | Outpatient (CLI) | payer BC ==
[2023-05-16 15:26] LABS: Basophils # (A) 0.02 X 10*3/uL (0.00-0.10); Basophils % (A) 0.3 %; Eosinophils # (A) 0.11 X 10*3/uL (0.04-0.35); Eosinophils % (A) 1.9 %; HCT 47.4 % (37.2-46.3); HGB 15.1 g/dL (12.0-15.0); Lymphocytes # (A) 1.69 X 10*3/uL (0.90-5.00); Lymphocytes % (A) 29.3 %; MCH 29.8 pg (27.0-32.0); MCHC 31.9 g/dL (32.0-37.0); MCV 93.5 FL (80.0-97.0); Mean Platelet Volume 11.6 FL (9.5-12.2); Monocytes # (A) 0.35 X 10*3/uL (0.20-1.00); Monocytes % (A) 6.1 %; NRBC Per 100 WBC 0 X 10*3/uL (0.00-0.01); Neutrophils # (A) 3.58 X 10*3/uL (1.80-7.70); Neutrophils % (A) 62.1 %; Platelet Count 273 X 10*3/uL (140-440); RBC 5.07 X 10*6/uL (4.10-5.20); RDW 12.9 % (11.5-14.5); WBC 5.77 X 10*3/uL (4.50-10.00)
[2023-05-16 15:40] LABS: ALT 13 U/L (8-44); AST 25 U/L (13-35); Albumin/Globulin Ratio 1.72 Ratio (1.60-3.17); Alkaline Phosphatase 72 U/L (41-126); BUN/Creat Ratio 15.12 Ratio (12.00-20.00); Blood Urea Nitrogen 12.1 mg/dL (9.0-27.0); Calcium 10.2 mg/dL (8.7-10.3); Chloride 100 mmol/L (96-109); Chol/HDL Ratio 2.53 Ratio; Globulin 2.9 g/dL (1.6-3.3); Glucose 86 mg/dL (70-110); LDL Cholesterol,Calculated 99.3 mg/dL (0.0-131.0); Potassium 4.4 mmol/L (3.5-5.5); Sodium 140 mmol/L (135-145); Total Bilirubin 0.3 mg/dL (0.3-1.2); Total Protein 7.9 g/dL (6.2-8.2); VLDL Calculation 14.96 mg/dL (5.00-40.00)
== END | disposition home or self-care (01) ==
LOC: LABWHC1 10:31
PROVIDERS: ATTEND Family Medicine
DX: G47.00 Insomnia, unspecified (principal)
CPT/HCPCS: 36415; 80053; 80061; 82306; 84443; 85025

== ENCOUNTER → 2023-11-11 | Outpatient (CLI) | payer BC ==
[2023-11-11 13:02] LABS: Ferritin 37.8 ng/mL (10.0-291.0); T4, Free (Free Thyroxine) 1.27 ng/dL (0.80-1.80); Testosterone 39.5 ng/dL (9.01-47.94)
[2023-11-11 13:10] LABS: Basophils # (A) 0.03 X 10*3/uL (0.00-0.10); Basophils % (A) 0.4 %; Eosinophils # (A) 0.11 X 10*3/uL (0.04-0.35); Eosinophils % (A) 1.6 %; HGB 14.9 g/dL (12.0-15.0); Lymphocytes # (A) 2.24 X 10*3/uL (0.90-5.00); Lymphocytes % (A) 32.3 %; MCH 29.7 pg (27.0-32.0); MCHC 31.7 g/dL (32.0-37.0); MCV 93.8 FL (80.0-97.0); Mean Platelet Volume 11.8 FL (9.5-12.2); Monocytes # (A) 0.47 X 10*3/uL (0.20-1.00); Monocytes % (A) 6.8 %; NRBC Per 100 WBC 0 X 10*3/uL (0.00-0.01); Neutrophils # (A) 4.05 X 10*3/uL (1.80-7.70); Neutrophils % (A) 58.5 %; Platelet Count 207 X 10*3/uL (140-440); RBC 5.01 X 10*6/uL (4.10-5.20); RDW 12.9 % (11.5-14.5); WBC 6.93 X 10*3/uL (4.50-10.00)
[2023-11-11 15:33] LABS: Follicle Stimulating Hormone 6.9 mIU/mL; Prolactin 9.2 ng/mL (2.800-29.200)
== END | disposition home or self-care (01) ==
LOC: LABWHC1 09:34
PROVIDERS: ATTEND Dermatology
DX: L65.9 Nonscarring hair loss, unspecified (principal); R53.83 Other fatigue
CPT/HCPCS: 36415; 82627; 82728; 82947; 83001; 83002; 83540; 84146; 84402; 84403; 84439; 84443; 84481; 85025; 86038

== ENCOUNTER → 2024-01-10 | Outpatient (CLI) | payer BC ==
[2024-01-10 15:59] LABS: Magnesium 1.9 mg/dL (1.5-2.4)
== END | disposition home or self-care (01) ==
LOC: LABWHC1 07:18
PROVIDERS: ATTEND Internal Medicine
DX: R53.83 Other fatigue (principal)
CPT/HCPCS: 36415; 82533; 83735

== ENCOUNTER → 2024-04-06 | Outpatient (CLI) | payer BC ==
[2024-04-06 13:45] LABS: Basophils # (A) 0.02 X 10*3/uL (0.00-0.10); Basophils % (A) 0.2 %; Eosinophils # (A) 0.07 X 10*3/uL (0.04-0.35); Eosinophils % (A) 0.8 %; HCT 42.1 % (37.2-46.3); HGB 13.7 g/dL (12.0-15.0); Lymphocytes # (A) 2.07 X 10*3/uL (0.90-5.00); Lymphocytes % (A) 24.4 %; MCH 29.7 pg (27.0-32.0); MCHC 32.5 g/dL (32.0-37.0); MCV 91.3 FL (80.0-97.0); Monocytes # (A) 0.56 X 10*3/uL (0.20-1.00); Monocytes % (A) 6.6 %; NRBC Per 100 WBC 0 X 10*3/uL (0.00-0.01); Neutrophils # (A) 5.74 X 10*3/uL (1.80-7.70); Neutrophils % (A) 67.8 %; Platelet Count 258 X 10*3/uL (140-440); RBC 4.61 X 10*6/uL (4.10-5.20); RDW 12.9 % (11.5-14.5); WBC 8.48 X 10*3/uL (4.50-10.00)
== END | disposition home or self-care (01) ==
LOC: LABWHC1 09:46
PROVIDERS: ATTEND Dermatology MOHS-Micrographic Surgery
DX: L65.0 Telogen effluvium (principal)
CPT/HCPCS: 36415; 82565; 84439; 84443; 84450; 84460; 84520; 85025

== ENCOUNTER → 2024-04-09 | Outpatient (CLI) | payer BC ==
[2024-04-10 02:53] LABS: ALT 17 U/L (8-44); AST 29 U/L (13-35); Blood Urea Nitrogen 15.1 mg/dL (9.0-27.0)
== END | disposition home or self-care (01) ==
LOC: LABWHC1 16:29
PROVIDERS: ATTEND Dermatology
DX: L65.0 Telogen effluvium (principal)
CPT/HCPCS: 36415; 82565; 84450; 84460; 84520